=== PATIENT | female | born 1975 | race Caucasian/White ===

== ENCOUNTER → 2017-07-17 | Outpatient (CLI) | payer BC ==
[~2017-07-17] MED LIST: ACET325 PO; ALBU90OI INH; CLAR500 PO; CRUTCH3 USE; CYCL10 PO; DIPATR PO; DIPH50 PO; ENJUVIA PO; HYDACE5 PO; LEVFLO250 PO; MESA250ER PO; NORT10 PO; NORT25 PO; OMEP20ER PO; PHENA200 PO; POLY17UD PO; PROM25 PO; RANI150 PO; SUCR1 PO; TRAM50 PO; [UNRECOGNIZED DRUG - REMARK]; [UNRECOGNIZED DRUG - REMARK] PO
[2017-07-17 13:44] LABS: Source, Urine Clean Catch
[2017-07-17 15:59] LABS: Bilirubin, Urine Neg (Neg); Blood, Urine 4+ (Neg); Glucose Qualitative, Urine Neg (Neg); Ketones, Urine Neg (Neg); Leukocyte Esterase, Urine Neg (Neg); Nitrite, Urine Neg (Neg); Protein, Urine Neg (Neg); Specific Gravity, Urine 1.015 (1.003-1.022); Urobilinogen, Urine NORM (Normal); pH, Urine 6.5 (5.0-8.0)
[2017-07-17 16:07] LABS: Appearance, Urine Clear (Clear); Color, Urine Yellow (P-Yellow)
[2017-07-17 16:09] LABS: Bacteria Few /hpf; Squamous Epithelial Cells Few /hpf (Few); White Blood Cells, Urine 0-2 /hpf (0-5)
== END | disposition home or self-care (01) ==
LOC: LAB SHORT 13:07 → OLS 13:07 → LAB FUT 07-17 10:00 → EDSTATUS 07-17 10:00
PROVIDERS: Internal Medicine Rheumatology
DX: R31.9 Hematuria, unspecified (principal)
CPT/HCPCS: 81001

== ENCOUNTER → 2018-07-03 | Outpatient (CLI) | payer BC | LOC: LAB 17:14 → LAB SHORT 17:14 | DX: R30.0 Dysuria (principal) | CPT/HCPCS: 87086 ==

== ENCOUNTER → 2021-09-21 | Outpatient (CLI) | payer OTHER | END | disposition home or self-care (01) | LOC: LAB SHORT 09:44 | DX: R53.83 Other fatigue (principal); U09.9 Post COVID-19 condition, unspecified; R07.89 Other chest pain; N95.1 Menopausal and female climacteric states; R23.8 Other skin changes | CPT/HCPCS: 85651 ==

== ENCOUNTER → 2024-08-03 | Outpatient (CLI) | payer OTHER ==
[~2024-08-03] MED LIST changes: +DEXA2 PO; +DICL75ER PO; +ESTR2 PO; +HYOS.125 SL; +IBUP600 PO; +LINZESS145 MCG PO; +Naltrexone HCl50 MG PO; +ONDA4ODT MM; +OXYACE5T PO; +PARO10 PO; +PRED20 PO; +RXOXYACE PO
[2024-08-03 14:25] LABS: BASOPHILS ABSOLUTE AUTO 0.01 K/mm3 (0.00-0.23); BASOPHILS PERCENT AUTO 0 % (0-2); EOSINOPHILS ABSOLUTE AUTO 0.03 K/mm3 (0.00-0.68); EOSINOPHILS PERCENT AUTO 0 % (0-6); Hematocrit 39.3 % (33.0-51.0); IMMATURE GRAN ABSOLUTE AUTO 0.03 K/mm3 (0.00-0.10); IMMATURE GRAN PERCENT AUTO 0 % (0-1); LYMPHOCYTES ABSOLUTE AUTO 2.36 K/mm3 (0.84-5.20); LYMPHOCYTES PERCENT AUTO 26 % (21-46); MONOCYTES PERCENT AUTO 9 % (4-13); Mean Corpuscular HGB 31.4 pg (26.0-34.0); Mean Corpuscular HGB Conc 33.1 g/dL (31.5-36.5); Mean Corpuscular Volume 95 fL (80-100); Mean Platelet Volume 9.4 fL (9.1-12.4); NEUTROPHILS ABSOLUTE AUTO 5.81 K/mm3 (1.96-9.15); NEUTROPHILS PERCENT AUTO 64 % (41-73); Platelet Count 333 K/mm3 (150-400); RDW Coefficient Variation 13.8 % (11.7-14.2); RDW Standard Deviation 48.5 fL (35.1-46.3); Red Blood Cell Count 4.14 M/mm3 (3.80-5.20); White Blood Cell Count 9.04 K/mm3 (4.00-11.30)
[2024-08-03 15:15] LABS: Alanine Aminotransfer (ALT/SGP 27 U/L (12-78); Albumin, Blood 4.2 g/dL (3.4-5.0); Albumin/Globulin Ratio 1.2 (0.8-1.8); Alk Phos 62 U/L (50-136); Anion Gap 10 mmol/L (3-11); Aspartate Aminotrans (AST/SGOT 18 U/L (12-37); Bilirubin, Total 0.6 mg/dL (0.1-1.0); Blood Urea Nitrogen 14 mg/dL (8-24); Bun/Creatinine Ratio 29.2 (12.0-20.0); CHOL/HDL RATIO 3.8; CO2, Blood 27 mmol/L (21-32); Calcium, Blood 9.3 mg/dL (8.5-10.1); Chloride, Blood 102 mmol/L (98-108); Cholesterol 260 mg/dL (50-200); Creatinine, Blood 0.48 mg/dL (0.40-1.00); Globulin, Blood 3.4 g/dL (2.2-4.0); Glomerular Filtration Rate 115 (60-); Glucose, Blood 97 mg/dL (70-99); HDL Cholesterol 68 mg/dL (>39); LDL/HDL RATIO 2.3; Low Density Lipoprotein Chol 158 mg/dL (0-110); Sodium, Blood 135 mmol/L (136-145); Total Protein, Blood 7.6 g/dL (6.4-8.2); Triglycerides 169 mg/dL (30-160); Very Low Density Lipoprot Chol 33 mg/dL (6-32)
== END ==
LOC: LAB 13:31 → LAB SHORT 13:31
PROVIDERS: Internal Medicine
DX: Z00.00 Encounter for general adult medical examination without abnormal findings (principal); Z13.6 Encounter for screening for cardiovascular disorders
CPT/HCPCS: 80053; 80061; 85025

== ENCOUNTER → 2024-09-08 | Outpatient (CLI) | payer OTHER | END | disposition home or self-care (01) | LOC: LAB SHORT 09:25 → LAB 09:25 | DX: G44.52 New daily persistent headache (NDPH) (principal) | CPT/HCPCS: 85651; 86140 ==

== ENCOUNTER → 2024-12-23 | Outpatient (CLI) | payer OTHER | LOC: LAB SHORT 13:44 → LAB 13:44 | DX: N30.00 Acute cystitis without hematuria (principal) | CPT/HCPCS: 87077; 87086; 87186 ==